=== PATIENT | male | born 1960 | race Caucasian/White ===

== ENCOUNTER 2018-06-14 21:48 | Emergency (ER) | payer OTHER, MEDICAID, SELFPAY ==
[2018-06-14 21:50] VITALS: PULSE 111; RESP 28; O2SAT 94
[2018-06-14 21:55] VITALS: BP 145/81; PULSE 110; RESP 28; TEMP 36.6; O2SAT 98; BMI 31.4
[2018-06-14] MEDS: ALBUTEROL/IPRATROPIUM 3 ML AMPUL 9 ML INH (22:01)
[2018-06-14 22:04] VITALS: PULSE 112; RESP 20; O2SAT 98
--- NOTE | 2018-06-14 22:05 | DI.RAD.S_ITS ---
PROCEDURE: XR CHEST 1V INDICATIONS: shortness of breath TECHNIQUE: One view of the chest was acquired. COMPARISON: None. FINDINGS: Surgical changes and devices: None. Lungs and pleura: Lungs are clear. No pleural effusions or pneumothorax. Mediastinum: Mediastinal contours appear normal. Heart size is normal. Bones and chest wall: No suspicious bony lesions. Overlying soft tissues appear unremarkable. IMPRESSION: No acute disease. Dictated by: Leland Graham M.D. on 06/15/2018 at 16:32 Approved by: Leland Graham M.D. on 06/15/2018 at 16:33
--- NOTE | 2018-06-14 22:05 | ED_ITS ---
HPI - SOB/Dyspnea General Chief Complaint: Shortness of Breath/Dyspnea Stated Complaint: SOB Time Seen by Provider: 06/14/18 22:03 Source: patient Mode of arrival: ambulatory Limitations: no limitations History of Present Illness Patient is a 58-year-old male who states that he was recently diagnosed with throat cancer. This was done by an endoscopy. He is scheduled for a biopsy next Sunday. He is not currently undergoing any treatment. He states that for the past couple days he has had shortness of breath and especially shortness of breath with exertion. No chest pain. No problems tolerating secretions. His breathing worsens he came into the emergency department for evaluation. Related Data Home Medications Medication Instructions Recorded Confirmed acetaminophen 1,000 mg PO DAILY 06/14/18 06/14/18 Allergies Allergy/AdvReac Type Severity Reaction Status Date / Time No Known Drug Allergies Allergy Verified 06/15/18 00:52 Review of Systems Constitutional Denies fever(s) and Denies headache(s) Eyes Denies change in vision ENT Ears, Nose, Mouth, and Throat: Denies headache(s), Denies throat swelling and Denies tongue swelling Cardiovascular Denies chest pain, Reports dyspnea and Reports dyspnea on exertion Respiratory Reports cough, Denies pain on inspiration, Reports dyspnea and Reports dyspnea on exertion Gastrointestinal Gastrointestinal: Denies abdominal pain, Denies nausea and Denies vomiting Musculoskeletal Denies myalgias and Denies arthralgias Integumentary/Breasts Denies rash Neurologic Denies confusion and Denies headache(s) Psychiatric Denies confusion Hematologic/Lymphatic Denies easy bleeding and Denies easy bruising Allergic/Immunologic Denies urticaria, Denies throat swelling and Denies tongue swelling [facility] Medical History Alcohol abuse (Acute) Throat cancer (Acute) Social History lives independently: Yes Social History lives independently: Yes Exam Initial Vital Signs Initial Vital Signs: Vital Signs Pulse Rate 111 H 06/14/18 21:50 Respiratory Rate 28 H 06/14/18 21:50 Pulse Oximetry 94 06/14/18 21:50 Const General: in distress and anxious Orientation: alert and awake HENMT Head: normal to inspection and normocephalic Resp Effort & Inspection: labored, respiratory distress, retractions, stridor, tachypneic and uses accessory muscles Auscultation: breath sounds absent Cardio Rate: tachycardic Rhythm: regular rhythm Pulses: radial pulses present GI Inspection: non-distended Palpation: soft Skin Lesions: no lesions Rashes: no rashes Neuro General: alert, awake and oriented x3 Extrem General: normal to inspection and capillary refill normal Psych Appearance: grossly normal and well kempt Course Orders Ordered: ED Orders 06/14/18 21:55 Basic Metabolic Panel Stat Complete Blood Count AUTO DIFF Stat 06/14/18 22:05 XR chest 1V Stat 06/14/18 22:30 CT angio chest PE protocol Stat CT soft tissue neck w con Stat Discontinued Medications Albuterol (Proventil) 1.25 mg INH NOW ONE Stop: 06/14/18 22:11 Last Admin: 06/14/18 23:25 Dose: Not Given Albuterol (Ventolin) 2.5 mg INH NOW ONE Stop: 06/14/18 22:12 Last Admin: 06/14/18 22:12 Dose: 2.5 mg Albuterol/Ipratropium (Duoneb) 9 ml INH NOW ONE Stop: 06/14/18 22:02 Last Admin: 06/14/18 22:01 Dose: 9 ml Albuterol/Ipratropium (Duoneb) 3 ml INH NOW ONE Stop: 06/14/18 22:04 Last Admin: 06/14/18 23:25 Dose: Not Given Dexamethasone (Decadron) 10 mg IV NOW ONE Stop: 06/14/18 22:33 Last Admin: 06/14/18 22:59 Dose: 10 mg Sodium Chloride (Normal Saline 0.9%) 1,000 mls @ 1,000 mls/hr IV BOLUS ONE Stop: 06/14/18 23:30 Last Infusion: 06/14/18 23:54 Dose: 0 mls/hr Admin: 06/14/18 22:59 Dose: 1,000 mls/hr Vital Signs - 8 hr 06/14/18 21:50 06/14/18 21:55 06/14/18 22:04 Temperature 97.9 F Pulse Rate 111 H 110 H 112 H Respiratory Rate 28 H 28 H 20 Blood Pressure 145/81 H Blood Pressure [Left Arm] Pulse Oximetry 94 98 98 06/14/18 22:13 06/14/18 23:05 06/14/18 23:20 Temperature Pulse Rate 106 H 113 H 91 H Respiratory Rate 20 19 Blood Pressure Blood Pressure [Left Arm] 140/119 H 117/73 Pulse Oximetry 98 96 95 06/15/18 00:31 06/15/18 01:01 Temperature Pulse Rate 87 92 H Respiratory Rate 22 20 Blood Pressure Blood Pressure [Left Arm] 134/80 151/72 H Pulse Oximetry 94 97 MDM - SOB/Dyspnea Lab Data Attestation: I reviewed the patient's lab results. Result diagrams: 06/14/18 21:55 06/14/18 21:55 Lab Results 06/14/18 06/14/18 Range/Units 21:55 21:55 WBC 11.8 H (4.5-11.0) X10^3/uL RBC 4.74 (4.5-5.9) X10^6/uL Hgb 14.1 (13.5-17.5) g/dL Hct 43.3 (41-53) % MCV 91.3 (80-100) fL MCH 29.7 (26-34) PG MCHC 32.5 (30-36) % RDW 13.3 (11.6-14.8) % Plt Count 303 (150-400) X10^3/uL Neut % (Auto) 43.8 L (50-75) % Lymph % (Auto) 44.0 H (25-40) % [place] % (Auto) 10.2 (3-14) % Eos % (Auto) 1.4 L (2-4) % Baso % (Auto) 0.6 (0-2) % Neut # (Auto) 5200 (1895-2786) /uL Lymph # (Auto) 5200 H (2571-6245) /uL [place] # (Auto) 1200 H (0-900) /uL Eos # (Auto) 200 (0-450) /uL Baso # (Auto) 100 (0-100) /uL Sodium 140 (137-145) mmol/L Potassium 4.0 (3.4-5.1) mmol/L Chloride 97 L (98-107) mmol/L Carbon Dioxide 32 (22-32) mmol/L BUN 12 (9-20) mg/dL Creatinine 0.60 L (0.66-1.25) mg/dL Estimated GFR > 60.0 (>60) mL/min BUN/Creatinine Ratio 20.0 (6-22) Glucose 152 H (70-100) mg/dL Calcium 9.5 (8.4-10.2) mg/dL Imaging Data CT scan - chest: Radiologist's impression: Bolus timing is poor for the evaluation of acute pulmonary embolic disease. No gross evidence of central pulmonary emboli in the main left or right pulmonary arteries. CT scan neck: Radiologist's impression: 5 cm infiltrative mass arising from the glottis and extending into the subglottic trachea at the level of the thoracic inlet. This lesion is highly suspicious for recurrent malignancy. Associated narrowing of the airway. MDM Narrative Medical decision making narrative: Patient received 3 DuoNeb and 1 albuterol treatment upon arrival. He did produce quite a bit of sputum. Afterwards he states that he felt better however was still having significant retractions and inspiratory stridor. Patient was not hypoxic. Was still tachypneic. He states that what brought him in this evening was that he started coughing which caused him to not be able to catch his breath. He was given Decadron here in the emergency department. Patient was able to sleep here in the emergency department. He is not hypoxic and states that he continues to feel better with the Decadron however still has a significant amount of inspiratory stridor and retractions with inspiration. I do not feel that he needs acutely intubated here in the emergency department. I did discuss the case with Dr. Askew with her [facility] at [place] who accepts the patient in transport. She stated that the last CT that she has this individual shows the mass at less than [address] here shows the mass at 5 cm. I feel that the patient is stable for transport. I discussed the transfer with the patient who expressed understanding and agreement. Discharge Plan Departure Patient Disposition: [facility] Clinical Impression: Mass of trachea, Acute respiratory distress, Inspiratory stridor Prescriptions: No Action acetaminophen 500 mg Tablet 1,000 mg PO DAILY RF: 0
[2018-06-14] MEDS: ALBUTEROL 2.5 MG/3 ML NEB (ADULT) INH (22:12)
[2018-06-14 22:13] VITALS: PULSE 106; RESP 20; O2SAT 98
[2018-06-14 22:14] LABS: Add Manual Diff / Slide Review NO; Basophils Absolute Auto 100 /uL (0-100); Basophils Percent Auto 0.6 % (0-2); Eosinophils Absolute Auto 200 /uL (0-450); Eosinophils Percent Auto 1.4 % (2-4); Hematocrit 43.3 % (41-53); Hemoglobin 14.1 g/dL (13.5-17.5); Lymphocytes Absolute Auto 5200 /uL (1100-4500); Mean Corpuscular HGB Conc 32.5 % (30-36); Mean Corpuscular Hemoglobin 29.7 PG (26-34); Mean Corpuscular Volume 91.3 fL (80-100); Monocytes Absolute Auto 1200 /uL (0-900); Monocytes Percent Auto 10.2 % (3-14); Neutrophils Absolute Auto 5200 /uL (1500-7000); Neutrophils Percent Auto 43.8 % (50-75); Platelet Count 303 X10^3/uL (150-400); Red Blood Cell Count 4.74 X10^6/uL (4.5-5.9); Red Cell Distribution Width 13.3 % (11.6-14.8); White Blood Cell Count 11.8 X10^3/uL (4.5-11.0)
[2018-06-14 22:17] LABS: Blood Urea Nitrogen 12 mg/dL (9-20); Calcium 9.5 mg/dL (8.4-10.2); Carbon Dioxide 32 mmol/L (22-32); Chloride 97 mmol/L (98-107); Estimated Glomerular Filt Rate > 60.0 mL/min (>60); Glucose 152 mg/dL (70-100); HEMOLYSIS 27 (0-50); Sodium 140 mmol/L (137-145)
--- NOTE | 2018-06-14 22:30 | DI.CT.S_ITS ---
PROCEDURE: CT ANGIO CHEST PE PROTOCOL INDICATIONS: Shotrness of breath TECHNIQUE: After the administration of intravenous contrast, 2 mm thick sections acquired from the pulmonary apices to the posterior costophrenic angles. 3-dimensional maximum intensity projection (MIP) coronal and sagittal reformats were then acquired through the thorax. For radiation dose reduction, the following was used: automated exposure control, adjustment of mA and/or kV according to patient size. COMPARISON: None. FINDINGS: Image quality: Very suboptimal due to poor contrast opacification of the pulmonary arteries including to the lobar and segmental level. Pulmonary arteries: Suboptimal evaluation due to poor contrast opacification of the pulmonary arteries. No gross or obvious filling defect is seen Lungs and pleura: No acute consolidation. Scattered subsegmental atelectasis and/or scarring. No pleural effusions or pneumothorax. Central and peripheral airways are patent. Mediastinum: Heart size is normal, without pericardial effusion. Calcified coronary artery disease. No mediastinal or hilar adenopathy. Thoracic aorta is normal in caliber and enhancement. Esophagus is normal in caliber, without hiatal hernia. Bones and chest wall: No suspicious bony lesions. Ribs and thoracic spine appear intact throughout. Thyroid gland negative. No axillary or supraclavicular adenopathy. Abdomen: Visualized upper abdominal solid organs appear normal in the early arterial phase of enhancement. IMPRESSION: Suboptimal evaluation due to very poor contrast opacification of the pulmonary arteries. No gross or obvious central filling defect is noted however if there is sufficient clinical concern consider further risk stratification with bilateral lower extremity ultrasound to assess for DVT. No acute consolidation. Dictated by: Leland Graham M.D. on 06/15/2018 at 16:11 Approved by: Leland Graham M.D. on 06/15/2018 at 16:16
--- NOTE | 2018-06-14 22:30 | DI.CT.S_ITS ---
PROCEDURE: CT SOFT TISSUE NECK W CON INDICATIONS: Shortness of breath, history of throat cancer TECHNIQUE: After the administration of intravenous contrast, 3.0 mm axial sections acquired from the sella to the aortic arch. Additional oblique axial 3.0 mm sections acquired through the pharynx. 3 mm thick coronal and sagittal reformats were generated. For radiation dose reduction, the following was used: automated exposure control. COMPARISON: [facility], CT, CT ANGIO CHEST PE PROTOCOL, 06/14/2018, 22:32. FINDINGS: Image quality: Excellent. Lymph nodes: No enlarged lymph nodes seen throughout the neck. Vessels: Visualized vasculature appears patent. Neck spaces: The oropharynx, nasopharynx, and pharynx demonstrate no mucosal lesions. However, there is marked supraglottic airway narrowing as well as narrowing at the level of the vocal cords. There is diffuse bulky soft tissue thickening in this region, with additional soft tissue attenuation along the right subglottic airway, for example image 62 series 2. Abnormal soft tissue closely abuts the anterior margin of the esophagus at the level of the thoracic inlet and cannot exclude esophageal tumor invasion. Overall abnormal soft tissue extends approximately 5 cm in cephalocaudad dimension. Glands: The parotid and submandibular glands appear normal. Thyroid gland negative. Miscellaneous: Visualized brain and orbits appear normal. Lung apices appear clear. Superficial soft tissues appear normal. Bones: No suspicious bony lesions. Mild left maxillary sinus disease. IMPRESSION: Airway narrowing at the level of the vocal cords in addition to supra-and subglottic involvement as detailed above. This is suspicious for recurrent active tumor however comparison studies would be very useful. Concordant with the preliminary study interpretation, which was discussed with Dr. Hernandez in the emergency department at the time of the study. Dictated by: Leland Graham M.D. on 06/15/2018 at 16:17 Approved by: Leland Graham M.D. on 06/15/2018 at 16:27
--- NOTE | 2018-06-14 22:52 | PC.NURSE ---
Pt recently dx'd with throat cancer.
[2018-06-14] MEDS: SODIUM CHLORIDE 0.9% 1,000 ML 1000 ML IV (22:59)
[2018-06-14] MEDS: DEXAMETHASONE 10 MG/ML VIAL IV (22:59)
[2018-06-14 23:05] VITALS: BP 140/119; PULSE 113; RESP 19; O2SAT 96
[2018-06-14 23:20] VITALS: BP 117/73; PULSE 91; O2SAT 95
[2018-06-15 00:31] VITALS: BP 134/80; PULSE 87; RESP 22; O2SAT 94
[2018-06-15 01:01] VITALS: BP 151/72; PULSE 92; RESP 20; O2SAT 97
[2018-06-15 01:23] VITALS: BP 151/72; PULSE 88; RESP 20; O2SAT 96
[2018-06-15 02:42] VITALS: BP 132/76; PULSE 84; RESP 17; O2SAT 97
[2018-06-15 03:00] VITALS: BP 120/82; PULSE 90; RESP 16; O2SAT 97
[2018-06-15] MEDS: SODIUM CHLORIDE 0.9% 1,000 ML 125 ML IV (03:04)
[2018-06-15 03:55] VITALS: BP 133/68; PULSE 92; RESP 19; TEMP 36.9; O2SAT 96
== END 2018-06-15 03:55 | disposition short-term general hospital (02) ==
PROVIDERS: Emergency Provider Emergency Medicine
DX: R06.03 Acute respiratory distress (principal); J39.8 Other specified diseases of upper respiratory tract; R06.1 Stridor
CPT/HCPCS: 36591; 70491; 71045; 71275; 80048; 85025; 94640; 96361; 96374; 99284; 99285; J1100; J7613; Q9967